=== PATIENT | female | born 1940 | race Caucasian/White ===

== ENCOUNTER 2016-10-30 16:13 | Inpatient (IN) | payer OTHER, BC ==
[~2016-10-30] VITALS: Ht 160 cm; Wt 58.5 kg
--- NOTE | ~2016-10-30 | EKG ---
[place] [address] [facility] [place] [address] ELECTROCARDIOGRAM REPORT Name: BROOK IGNACIO Room #: 438-P ADM IN M.R.#: [id number] Admission: 10/30/16 Attend Phys: Donaldo Lew MD Discharge: Date of : 42 Report #: [id number] THIS REPORT FOR: //name// [facility] ED Test Date: 2016-10-30 Test Time: 16:20:56 Pat Name: BROOK IGNACIO Department: Room: [facility] Gender: F Pediatrics Teacher: Angely CARSON : 1940 Requested By: Kelsey Payne Order Number: [id number] MD: Vikram Fung Measurements Intervals [place] Rate: 58 P: 66 NM: 181 QRS: -17 QRSD: 101 T: 53 QT: 406 QTc: 399 Interpretive Statements Sinus rhythm Probable anteroseptal infarct, old No previous ECG available for comparison Electronically Signed On 10-31-2016 8:04:58 CDT by Vikram Fung [email or web address] <ELECTRONICALLY SIGNED> By: Vikram Fung MD, [facility] 10/31/16 0804 1620 1620 Vikram Fung MD, FACC /EPI
--- NOTE | ~2016-10-30 | H ---
[facility] [place] [address] HISTORY AND PHYSICAL Name: BROOK IGNACIO Room #: 438-P ADM IN M.R.#: [id number] Admission: 10/30/16 Attend Phys: Donaldo Lew MD Discharge: Date of : 42 Report #: [id number] THIS REPORT FOR: //name// CC: Artur Lew DATE OF SERVICE: 10/30/2016 CHIEF COMPLAINT: Chest pain. HISTORY OF PRESENT ILLNESS: The patient is a 75-year-old female with history of hypertension, hypothyroidism, and rheumatoid arthritis, presented to the emergency room complaining of chest pain, it started this morning after she woke up, she describes as a dull achy pain over the retrosternal area with radiation to the left side of the jaw. It has been kind of constant throughout the day. She had mild shortness of breath. No dizziness. No fever or chills. She has had a mild cough. No nausea or vomiting. No diarrhea. The patient was given sublingual nitroglycerin in the emergency room and the pain got little better. PAST MEDICAL HISTORY: Significant for hypertension, hypothyroidism, hyperlipidemia, gastroesophageal reflux disease, rheumatoid arthritis, on Remicade; and hypertension. FAMILY HISTORY: Significant for coronary artery disease, CVA, diabetes, and hyperlipidemia. ALLERGIES: To CODEINE, causes nausea. HOME MEDICATIONS: Please look at the nursing documentation. Home meds were reviewed. SOCIAL HISTORY: No smoking, alcohol abuse, or illicit drug abuse. REVIEW OF SYSTEMS: CONSTITUTIONAL: She had lost 40 pounds over the last 4 years. No fever or chills. EYES: No change in vision. THROAT: Denies any sore throat. CARDIOVASCULAR: As above. RESPIRATORY: She does have some mild cough, no expectoration. GASTROINTESTINAL: No nausea or vomiting. GENITOURINARY: No dysuria or hematuria. NEUROLOGIC: No focal numbness or weakness of the extremities. PSYCHIATRIC: No anxiety or depression. [facility] [address] [place] [address] HISTORY AND PHYSICAL Name: BROOK IGNACIO Room #: [address] [place] [address] IN M.R.#: [id number] Admission: 10/30/16 Attend Phys: Donaldo Lew MD Discharge: Date of : 42 Report #: [id number] A 12-point review of system is negative other than the positive and the negative dictated in the history of present illness and the review of system. PHYSICAL EXAMINATION: VITAL SIGNS: Reviewed. Blood pressure is 144/54, heart rate of 53 per minute, afebrile. GENERAL: The patient is awake and alert, not in acute respiratory distress. EYES: Pupils equal, reactive to light, nonicteric, conjunctivae. THROAT: Appears normal. NECK: Supple, no JVD, no bruit, no lymphadenopathy. CARDIOVASCULAR SYSTEM: S1, S2, negative S3, no murmur. CHEST: Bilateral air entry present. Clear on auscultation. ABDOMEN: Soft, bowel sounds present, no mass, no organomegaly, no tenderness. PERIPHERY: No pedal edema. No calf tenderness. Dorsalis pedis 1+. NEUROLOGIC: No gross motor or sensory deficit. LABORATORY DATA: Reviewed. White count is 11.8, hemoglobin is 10.3, and platelets 255. BUN and creatinine are within normal limit. AST and ALT are within normal limit. Albumin is 3.4. Chest x-ray showed no acute abnormality. EKG showed normal sinus rhythm, borderline left axis deviation, low voltage. ASSESSMENT: 1. Chest pain. The patient will be admitted to telemetry with serial troponin. We will keep her n.p.o. after midnight. I will set a schedule for a cardiac stress test if her troponins are negative and the patient is in more chest pain. 2. The patient will be continued on aspirin. 3. Hypothyroidism. The patient will be continued on Synthroid. We will check a TSH level. 4. History of hypertension. The patient will be continued on present home medication for hypertension. 5. Dyslipidemia. The patient will be continued on Zocor. We will check her lipids in the morning. 6. Deep venous thrombosis prophylaxis. She will be on SCD on the leg for deep venous thrombosis prophylaxis. 7. History of rheumatoid arthritis, on Remicade, last dose 09/26/2016, and she is also on methotrexate once a week. Treatment plan has been explained to the patient and the patient's at bedside in detail. By: [id number] Donaldo Lew MD /nt
[2016-10-30 16:14] VITALS: BP 136/45
[2016-10-30] MEDS ORDERED: OMEPRAZOLE 20 M20 M1 PO (16:49)
[2016-10-30] MEDS ORDERED: CARDIZEM CD240 MG PO (16:50)
[2016-10-30] MEDS ORDERED: GLUCOPHAGE500 MG PO (16:51)
[2016-10-30] MEDS ORDERED: LISINOPRIL5 MG PO (16:52)
[2016-10-30] MEDS ORDERED: SYNTHROID75 MCG PO (16:52)
[2016-10-30] MEDS ORDERED: CALCIUM 500 +1 EAC5 PO (16:54)
[2016-10-30] MEDS ORDERED: CALCIUM 500 +1 EAC5 (16:54)
[2016-10-30] MEDS ORDERED: CYMBALTA60 MG PO (16:55)
[2016-10-30] MEDS ORDERED: ZOCOR20 MG PO (16:56)
[2016-10-30] MEDS ORDERED: PRENATAL PO (16:56)
[2016-10-30] MEDS ORDERED: CLARITIN10 MG PO (16:56)
[2016-10-30] MEDS ORDERED: METHOTREXATE 22.5 MG PO (16:57)
[2016-10-30 17:12] LABS: HEMATOCRIT 31.5 % (37.0-47.0); HEMOGLOBIN 10.3 gm/dL (12.0-15.0); MCH 30.7 pg (26.0-34.0); MCHC 32.8 g/dL (28.0-37.0); MCV 93.6 fL (80.0-100.0); PLATELET COUNT 255 thou/uL (150-400); RBC 3.37 mil/uL (4.20-5.00); RDW 16.3 % (10.5-14.5); WBC 11.8 thou/uL (4.0-11.0)
[2016-10-30 17:22] LABS: ANION GAP 6 mmol/L (7-16); BUN 18 mg/dL (7-18); CALCIUM 8.5 mg/dL (8.5-10.1); CHLORIDE 106 mmol/L (98-107); CO2 26 mmol/L (21-32); CREATININE 0.8 mg/dL (0.6-1.0); GLUCOSE 155 mg/dL (74-106); POTASSIUM 3.9 mmol/L (3.5-5.1); SODIUM 138 mmol/L (136-145)
[2016-10-30 17:31] LABS: ALBUMIN 3.4 g/dL (3.4-5.0); ALKALINE PHOSPHATASE 55 U/L (46-116); SGOT 18 U/L (15-37); SGPT 19 U/L (30-65); TOTAL BILIRUBIN 0.3 mg/dL (<0.1-1.0); TOTAL PROTEIN 6.9 g/dL (6.4-8.2); TROPONIN-I < 0.04 ng/mL (<0.04-0.07)
[2016-10-30 17:43] LABS: BASOPHILS 0.2 % (0.0-2.0); EOSINOPHILS 1.7 % (0.0-3.0); LYMPHOCYTES 17.6 % (24.0-44.0); MANUAL DIFF NO; MONOCYTES 7.5 % (1.0-8.0)
[2016-10-30 19:12] VITALS: BP 144/54
[2016-10-30 19:39] VITALS: BP 134/55
[2016-10-30 20:07] VITALS: BP 142/56
[2016-10-31 04:23] VITALS: BP 155/64
[2016-10-31 05:28] LABS: ABSOLUTE NEUTROPHILS 6.1 thou/uL (1.4-8.2); BASOPHILS 0.6 % (0.0-2.0); EOSINOPHILS 1.6 % (0.0-3.0); HEMATOCRIT 29.6 % (37.0-47.0); LYMPHOCYTES 22.6 % (24.0-44.0); MCH 31.5 pg (26.0-34.0); MCHC 33.9 g/dL (28.0-37.0); MCV 92.9 fL (80.0-100.0); MONOCYTES 11.5 % (1.0-8.0); PLATELET COUNT 224 thou/uL (150-400); POLYS 63.7 % (36.0-66.0); RBC 3.18 mil/uL (4.20-5.00); RDW 16.4 % (10.5-14.5); WBC 9.5 thou/uL (4.0-11.0)
[2016-10-31 05:30] LABS: MANUAL DIFF NO
[2016-10-31 05:46] LABS: ANION GAP 9 mmol/L (7-16); BUN 14 mg/dL (7-18); CALCIUM 8.6 mg/dL (8.5-10.1); CHLORIDE 105 mmol/L (98-107); CHOLESTEROL 132 mg/dL (<200); CO2 28 mmol/L (21-32); CREATININE 0.7 mg/dL (0.6-1.0); GLUCOSE 110 mg/dL (74-106); HDL CHOLESTEROL 71 mg/dL (>40); LDL CHOLESTEROL 54 mg/dL (<100); MAGNESIUM 1.4 mg/dL (1.8-2.4); POTASSIUM 3.9 mmol/L (3.5-5.1); SODIUM 142 mmol/L (136-145); TC:HDL 1.9 Ratio (Not establshd); TRIGLYCERIDE 37 mg/dL (<150); VLDL 7 mg/dL (<40)
[2016-10-31 05:53] LABS: SERUM ASSESSMENT Clear
[2016-10-31 07:41] VITALS: BP 134/49
[2016-10-31 14:35] VITALS: BP 158/60
[2016-10-31 16:26] VITALS: BP 135/58
[2016-10-31 18:12] VITALS: BP 135/58
== END 2016-10-31 18:56 | disposition home or self-care (01) | DRG 392 ==
LOC: ER 16:13 → 4S 17:49 → EROBS 17:49 → 4S 18:30 → ENTRNSPT 10-31 18:35 → 4S 10-31 18:56
PROVIDERS: Internal Medicine; Physician Assistant
DX: K21.9 Gastro-esophageal reflux disease without esophagitis (principal); I10 Essential (primary) hypertension; E78.5 Hyperlipidemia, unspecified; E11.9 Type 2 diabetes mellitus without complications; E03.9 Hypothyroidism, unspecified; M06.9 Rheumatoid arthritis, unspecified; Z88.8 Allergy status to other drugs, medicaments and biological substances; Z82.3 Family history of stroke; Z83.3 Family history of diabetes mellitus; Z82.49 Family history of ischemic heart disease and other diseases of the circulatory system; Z84.89 Family history of other specified conditions
CPT/HCPCS: 10100